=== PATIENT | male | born 1975 | race Caucasian/White ===

== ENCOUNTER 2018-12-31 06:08 | Day surgery (SDC) | payer OTHER ==
[~2018-12-31] VITALS: Ht 195.6 cm; Wt 148.8 kg
[~2018-12-31 06:08] MED LIST: CLON1TAB PO; IBUP-1007 PO; TIZA4TAB2 PO; ceFAZolin SODIUM 3 GM in IV DEXTROSE 5% 100ML 100 ML IV PRN
[2018-12-31] MEDS ORDERED: VORT10TA PO (06:40)
[2018-12-31] MEDS ORDERED: ONDANSETRON PF 4 MG/2 ML VIAL. IV PRN (07:00)
[2018-12-31] MEDS ORDERED: LIDOCAINE 1% PF 2 ML VIAL. ID PRN (07:00)
[2018-12-31] MEDS ORDERED: PROCHLORPERAZINE 10 MG/2 ML VIAL. IV PRN (07:00)
[2018-12-31] MEDS ORDERED: MORPHINE SULFATE 2 MG/ML VIAL. IV PRN (07:00)
[2018-12-31] MEDS ORDERED: fentaNYL PF VIAL 100 MCG/2 ML VIAL IV PRN ×2 (07:00)
[2018-12-31] MEDS ORDERED: HYDROmorphone 2 MG/ML VIAL IV PRN (07:00)
[2018-12-31] MEDS ORDERED: IV RINGERS,LACTATED 1000ML 1,000 ML IV SCH (07:00)
[2018-12-31] MEDS ORDERED: fentaNYL PF VIAL 100 MCG/2 ML VIAL ONE (07:20)
[2018-12-31] MEDS ORDERED: MIDAZOLAM HCL/PF 2 MG/2 ML VIAL. ONE (07:20)
[2018-12-31] MEDS ORDERED: HYDR-3165 PO (07:50)
--- NOTE | 2018-12-31 07:52 | HP ---
ADMIT DATE: 12/31/2018 CHIEF COMPLAINT: Right knee pain with loose body. HISTORY OF PRESENT ILLNESS: The patient has had ongoing right knee issues for some time. He broke his growth plate in seventh grade and in August it was noted that he was having more difficulties when he squats or kneels down and does coaching duties for [employer] and has been having crunching pain and swelling. PAST MEDICAL HISTORY: Right knee injury and surgery on his growth plate. PAST SURGICAL HISTORY: Same. FAMILY HISTORY: Noncontributory. SOCIAL HISTORY: Denies smoking or drug use. Occasional alcohol socially. MEDICATIONS: Klonopin, ibuprofen, tizanidine. ALLERGIES: He has no known drug allergies. REVIEW OF SYSTEMS: Denies any chest pain, shortness of breath, fever, chills or other constitutional symptoms. PHYSICAL EXAMINATION: VITAL SIGNS: Per admission sheet. HEENT: Atraumatic, normocephalic. HEART: Regular rate and rhythm. LUNGS: Clear to auscultation bilaterally. ABDOMEN: Benign. EXTREMITIES: Examination of the right knee shows a palpable loose body above the patella. He has some minor degenerative changes and some crepitus present. Minimal joint line tenderness. Negative Emily's. Normal examination of the contralateral knee, bilateral hips and ankles with intact motor function, distal pulses, sensation, reflexes, skin in both lower extremities throughout. IMAGING: X-rays show a loose body of the right knee and some chondromalacia of patellofemoral joint. IMPRESSION: Right knee loose body. TREATMENT PLAN: I previously talked to him about surgery in the interim to give him some symptomatic relief. He underwent an injection, which worked for a while, but certainly not for the loose body symptoms. He is now back for definitive treatment and understands the risks, benefits, postoperative course of the surgery including the possibility of infection, nerve or blood vessel damage, medical or other anesthetic complications, blood clots among others. All his questions were answered. He wishes to proceed with surgical evaluation and treatment, which will be on an outpatient basis today. OLU HENRY MD DR: [email or web address] JOB#: [id number] / [id number]
--- NOTE | 2018-12-31 07:53 | DISCH ---
DISCHARGE INSTRUCTIONS Condition on Discharge Condition on Discharge: Stable Activity After Discharge Activity Instructions for Disc: Other, see below (slow advance to normal ac tivities as tolerated) Weight Bearing Status after Di: As tolerated Diet after Discharge Diet after Discharge: Regular Wound Incision Care Wound/Incision Care: Change dressing (remove dressing in 2 days may then shower no soaking until sutures removed) Contacting the after DC Call your doctor for: Concerns you may have Follow-Up Follow up with: Dr. Roy 10 days OLU ROY MD Dec 31, 2018 07:53
[2018-12-31] MEDS ORDERED: BUPIVAC MPF-EPI 0.5%-1:200000 30 ML VIAL. INJ ONE (08:00)
[2018-12-31] MEDS ORDERED: HYDROcodone/APAP 7.5/325MG 1 TAB TABLET PO ONE (08:00)
[2018-12-31] MEDS ORDERED: SEVOFLURANE 61 TO 120 MINUTES. IH ONE (09:00)
[2018-12-31] MEDS ORDERED: DEXAMETHASONE SOD PHOS 4 MG/ML VIAL ONE (09:00)
[2018-12-31] MEDS ORDERED: PROPOFOL 20 ML IV ONE (09:00)
[2018-12-31] MEDS ORDERED: ONDANSETRON PF 4 MG/2 ML VIAL. ONE (09:00)
[2018-12-31] MEDS ORDERED: LIDOCAINE 2% PF 5 ML VIAL. ONE (09:00)
[2018-12-31] MEDS ORDERED: KETOROLAC 30 MG/ML INJ FOR OR. INJ ONE (09:00)
[2018-12-31] MEDS ORDERED: PROCHLORPERAZINE 10 MG/2 ML VIAL. ONE (09:40)
[2018-12-31 10:24] VITALS: BP 110/51
--- NOTE | 2018-12-31 23:00 | PDOC4 ---
Operative Note Operative Note Date of surgery: 12/31/2018 Preoperative diagnosis: Loose body right knee postoperative diagnosis: Full-thickness cartilage defect lateral femoral condyle with chondral flap tear Operative procedure: Right knee arthroscopy removal loose body through separate proximal medial portal, microfracture lateral femoral condyle Surgeon: Kirill Anesthesia: GenMichael Estimated blood loss: 10 mL Complications: None Operative indications: Vern is a 43-year-old male with a history of a growth plate fracture at a young age that underwent surgery subsequent fixation and has had knee problems since and indicates a symptomatic loose body has been present up above the kneecap that he can feel any feels cracking swelling and pain. He initially underwent injection but had continued symptoms and wishes to proceed with surgical evaluation and treatment. He understands that removal of loose body may not completely cure his symptoms and there is a possible risk of in fection nerve or blood vessel damage continued pain medical or other anesthetic complications among others she wishes to proceed with surgical evaluation and treatment. Operative text: Patient was identified procedure verified patient placed in the supine position on the operating table. After adequate amounts of general anesthesia were administered the right lower extremity was prepped and draped in standard sterile fashion with a thigh tourniquet. After timeout was performed patient procedure identified and verified the right lower extremity was exsanguinated by Esmarch bandage tourniquet inflated to 350 mmHg a standard lateral portal was established a medial portal established using spinal needle localization and the knee joint was systematically examined. He was noted to have a loose body as expected in the suprapatellar pouch area along the medial aspect and as it was very large nearly 3 cm in greatest dimension I elected to proceed with making an additional superior medial portal and thus retrieved the loose body through this incision. No additional loose bodies were noted in the gutters or suprapatellar pouch medial meniscus was probed and found to be intact as was the medial compartment cartilage overall with minimal chondromalacia ACL was probed and found to be intact lateral compartment however was noted to have a full-thickness defect in the weightbearing aspect of the lateral femoral condyle that had a chondral flap tear that was debrided back to stable tissue and microfracture was then carried out with the microfracture awls back to bleeding bone after the joint was deep pressurized of arthroscopic fluid. The knee was then again toward to ensure no loose bodies were present drained of arthroscopic fluid portals and superior medial incision were closed with buried Vicryl the superior incision and nylon suture and the skin sterile dressings were applied have percent plain Marcaine was instilled into the skin and subcutaneous tissue and fat pad areas prior to dressing toes were noted be warm pink find deflation of tourniquet patient was returned recovery room stable condition having tolerated procedure well OLU HENRY MD Dec 31, 2018 23:00
== END 2018-12-31 11:02 | disposition home or self-care (01) ==
LOC: SURG 06:08
PROVIDERS: ATTEND Orthopaedic Surgery
DX: M23.41 Loose body in knee, right knee (principal); M22.41 Chondromalacia patellae, right knee; M94.8X6 Other specified disorders of cartilage, lower leg
CPT/HCPCS: 29879; A7015; C1782; J0780; J1100; J1885; J2001; J2250; J2405; J2704; J3010; J3490